=== PATIENT | female | born 1980 | race Hispanic/Latino ===

== ENCOUNTER 2019-04-24 18:42 | Emergency (ER) | payer OTHER, SELFPAY ==
[2019-04-24] MEDS ORDERED: Acetaminophen 500 MG TAB ONE (22:01)
--- NOTE | 2019-04-24 22:17 | RAD ---
Exam:2 views right shoulder HISTORY: Pain. COMPARISON: None FINDINGS: There does appear to be a nondisplaced fracture involving the greater tuberosity. Calcific densities may be due to calcific tendinitis of the rotator cuff. Limited evaluation the glenohumeral joint space. No obvious dislocation. Visualized right ribs are unremarkable. IMPRESSION: Possible fracture at the level of the greater tuberosity. Additional findings as above.
--- NOTE | 2019-04-24 22:19 | RAD ---
Exam:2 views right humerus HISTORY: Pain. COMPARISON: None FINDINGS: There appears to be a nondisplaced fracture involving the greater tuberosity. Calcification of the rotator cuff may be due to calcific tendinitis. IMPRESSION: Nondisplaced fracture involving greater tuberosity.
== END 2019-04-24 23:13 | disposition home or self-care (01) ==
LOC: ERS 18:42
DX: S42.254A Nondisplaced fracture of greater tuberosity of right humerus, initial encounter for closed fracture (principal); E11.9 Type 2 diabetes mellitus without complications; E78.5 Hyperlipidemia, unspecified; Z79.4 Long term (current) use of insulin; Z79.899 Other long term (current) drug therapy; X58.XXXA Exposure to other specified factors, initial encounter
CPT/HCPCS: 36416; 93005